=== PATIENT | female | born 1980 | race Caucasian/White ===

== ENCOUNTER → 2017-10-09 | Outpatient (CLI) | payer MEDICAID | LOC: FIMAGING 14:18 | PROVIDERS: ATTEND Obstetrics & Gynecology | DX: O09.521 Supervision of elderly multigravida, first trimester (principal); O98.411 Viral hepatitis complicating pregnancy, first trimester; O99.331 Smoking (tobacco) complicating pregnancy, first trimester; Z3A.12 12 weeks gestation of pregnancy ==

== ENCOUNTER → 2017-11-06 | Outpatient (CLI) | payer MEDICAID | LOC: FIMAGING 14:14 | PROVIDERS: ATTEND Obstetrics & Gynecology | DX: O35.8XX0 Maternal care for other (suspected) fetal abnormality and damage, not applicable or unspecified (principal); O09.522 Supervision of elderly multigravida, second trimester; O98.412 Viral hepatitis complicating pregnancy, second trimester; Z3A.16 16 weeks gestation of pregnancy ==